=== PATIENT | male | born 1980 | race Caucasian/White ===

== ENCOUNTER 2021-04-03 00:47 | Emergency (ER) | payer OTHER ==
[2021-04-03] MEDS ORDERED: DIMETAPP COLD237 M1 PO (04:07)
[2021-04-03] MEDS ORDERED: IBUPROFEN600 MG PO (04:07)
== END 2021-04-03 04:16 | disposition home or self-care (01) ==
LOC: ER1 00:47
DX: J02.9 Acute pharyngitis, unspecified (principal); F17.200 Nicotine dependence, unspecified, uncomplicated; Z20.822 Contact with and (suspected) exposure to COVID-19
CPT/HCPCS: 87081; 87880; 99283; U0002

== ENCOUNTER 2022-03-07 18:41 | Emergency (ER) | payer OTHER ==
[~2022-03-07 18:41] MED LIST: DIMETAPP COLD237 M1 PO; IBUPROFEN600 MG PO
== END 2022-03-07 19:35 | disposition left against medical advice (07) ==
LOC: ER1 18:41
DX: S62.001A Unspecified fracture of navicular [scaphoid] bone of right wrist, initial encounter for closed fracture (principal); F17.210 Nicotine dependence, cigarettes, uncomplicated; W23.1XXA Caught, crushed, jammed, or pinched between stationary objects, initial encounter; Y92.89 Other specified places as the place of occurrence of the external cause; Y99.0 Civilian activity done for income or pay
CPT/HCPCS: 73130; 99283